=== PATIENT | female | born 1990 | race Hispanic/Latino ===

== ENCOUNTER 2017-05-01 13:04 | Emergency (ER) | payer OTHER ==
[2017-05-01 13:29] VITALS: BP 115/65; PULSE 101; RESP 16; TEMP 97; O2SAT 98
--- NOTE | 2017-05-01 13:54 | ED PDOC ---
HPI: Dental Pain/Injury Time Seen by Provider: 05/01/17 13:36 Chief Complaint (Nursing): Dental Pain Chief Complaint (Provider): facial swelling History Per: Patient History/Exam Limitations: no limitations Current Symptoms Are (Timing): Still Present Additional Complaint(s): 26 year old female presents to the ED complaining of pain and swelling to left lower mandible 3 days. Patient states she was seen by her dentist and started on Zithromax but the swelling has not improved. Patient denies fever or chills and she is tolerating liquids. PMD: none provided Past Medical History Reviewed: Historical Data, Nursing Documentation, Vital Signs Vital Signs: Last Vital Signs Temp 97.0 F L 05/01/17 13:27 Pulse 101 H 05/01/17 13:27 Resp 16 05/01/17 13:27 BP 115/65 05/01/17 13:27 Pulse Ox 98 05/01/17 13:27 - Medical History PMH: Rheumatoid Arthritis - Surgical History Surgical History: No Surg Hx - Family History Family History: States: No Known Family Hx - Living Arrangements Living Arrangements: With Family - Social History Current smoker - smoking cessation education provided: No Alcohol: None Drugs: Denies - Home Medications Home Medications: Ambulatory Orders Medication Instructions Recorded Clindamycin [Cleocin] 300 mg PO QID #28 cap 05/01/17 - Allergies Allergies/Adverse Reactions: Allergies Allergy/AdvReac Type Severity Reaction Status Date / Time clarithromycin [From Biaxin] Allergy RASH Verified 05/01/17 13:27 Sulfa (Sulfonamide Allergy RASH Verified 05/01/17 13:27 Antibiotics) Review of Systems ROS Statement: Except As Marked, All Systems Reviewed And Found Negative Constitutional: Negative for: Fever, Chills ENT: Positive for: Mouth Pain Respiratory: Negative for: Cough Gastrointestinal: Negative for: Vomiting Neurological: Negative for: Headache Physical Exam - Reviewed Nursing Documentation Reviewed: Yes Vital Signs Reviewed: Yes - Physical Exam Appears: Positive for: Well, Non-toxic, No Acute Distress Head Exam: Positive for: ATRAUMATIC, NORMAL INSPECTION, NORMOCEPHALIC Skin: Positive for: Normal Color. Negative for: Rash Eye Exam: Positive for: EOMI, Normal appearance, PERRL ENT: Positive for: Other (Swelling of left lower manible gingiva posteriorly concerning for dental abcess, mild swelling to the left mandibular region and face no facial cellulitis, full range of motion of lower mandible, airway patent , uvula midline, no trismus) Neck: Positive for: Normal, Painless ROM Neurologic/Psych: Positive for: Alert, Oriented - Laboratory Results Urine POC: Negative (test declined, patient is certain she is not ) - ECG O2 Sat by Pulse Oximetry: 98 (RA) Pulse Ox Interpretation: Normal Medical Decision Making Medical Decision Making: Impression: dental abscess Plan: Patient was instructed to discontinue use of Zithromax and was given prescription for clindamycin instead. Instructed ibuprofen every 6 hours for swelling, soft foods and liquids only. Patient was advised to follow up with dentist in 2-3 days. Disposition - Clinical Impression Clinical Impression: Dental abscess - Patient ED Disposition Is Patient to be Admitted: No Counseled Patient/Family Regarding: Diagnosis, Need For Followup, Rx Given - Disposition Referrals: [facility] [Outside] Disposition: Routine/Home Disposition Time: 13:59 Condition: STABLE Additional Instructions: Stop taking current antibiotics and take prescription as directed. Take over-the -counter ibuprofen (3 tabs) every 6 hours for pain and swelling. Liquids and soft foods only. Gargle with warm salt water after meals. Follow-up with dentist to obtain x-rays to rule out any cavities. Prescriptions: Clindamycin [Cleocin] 300 mg PO QID #28 cap Instructions: Tooth Abscess (DC) Forms: [employer] ([place])
== END 2017-05-01 14:05 | disposition home or self-care (01) ==
LOC: H.ER 13:04
DX: K04.7 Periapical abscess without sinus (principal); M06.9 Rheumatoid arthritis, unspecified

== ENCOUNTER 2018-05-26 21:34 | Emergency (ER) | payer OTHER ==
[2018-05-26 21:40] VITALS: BP 120/75; PULSE 82; RESP 18; TEMP 98.3; O2SAT 98; BMI 23.1
[2018-05-26] MEDS ORDERED: Amoxicillin-Clav 875-125 mg Tab PO ONE ×2 (21:56→22:06)
--- NOTE | 2018-05-26 22:35 | ED PDOC ---
HPI: CCC, URI, Sore Throat Time Seen by Provider: 05/26/18 21:45 Chief Complaint (Nursing): ENT Problem Chief Complaint (Provider): neck swelling History Per: Patient Onset/Duration Of Symptoms: Days (started yesterday am) Current Symptoms Are (Timing): Still Present Additional Complaint(s): Pt. reports 2 d. history of right sided face/neck swelling. Pt. reports she awoke to mild swelling to right face yesterday am which has progressed and continued to swell today prompting ED visit. Pt. denies fevers, dental pain, cough or colds. She reports she is tolerating po and breathing comfortably. Immunizations are utd. Past Medical History Vital Signs: Last Vital Signs Temp 98.3 F 05/26/18 21:39 Pulse 82 05/26/18 21:39 Resp 18 05/26/18 21:39 BP 120/75 05/26/18 21:39 Pulse Ox 98 05/26/18 21:39 - Medical History PMH: Rheumatoid Arthritis - Family History Family History: States: Unknown Family Hx - Home Medications Home Medications: Ambulatory Orders Medication Instructions Recorded Clindamycin [Cleocin] 300 mg PO QID #28 cap 05/01/17 Amoxicillin/Clavulanate [Augmentin 1 tab PO Q12 #14 tab 05/26/18 875 MG-125 MG] - Allergies Allergies/Adverse Reactions: Allergies Allergy/AdvReac Type Severity Reaction Status Date / Time clarithromycin [From Biaxin] Allergy RASH Verified 05/26/18 21:37 Sulfa (Sulfonamide Allergy RASH Verified 05/26/18 21:37 Antibiotics) Review of Systems Constitutional: Negative for: Fever, Chills ENT: Negative for: Ear Pain, Mouth Pain Physical Exam - Reviewed Nursing Documentation Reviewed: Yes Vital Signs Reviewed: Yes - Physical Exam Appears: Positive for: Well, Non-toxic Head Exam: Positive for: ATRAUMATIC Skin: Positive for: Normal Color, Warm, Dry Eye Exam: Positive for: Normal appearance ENT: Positive for: Pharynx Is (normal), TM Is/Are (normal), Other ((+) firm tender swelling in preauricular and submandibular area with no erythema, no fluctuance. Airway patent. ). Negative for: Sinus Pain/Drainage, Nasal Congestion, Pharyngeal Erythema, Tonsillar Exudate, Tonsillar Swelling - ECG O2 Sat by Pulse Oximetry: 98 Medical Decision Making Medical Decision Making: U. preg neg Motrin po given. Exam as above consistent with sialoadenitis; advised warm compresses, motrin, sour candy and f/u with PMD or ENT (referral given). Pt. tolerating po and in no distress, nontoxic appearing. Disposition - Clinical Impression Clinical Impression: Sialoadenitis - Disposition Referrals: Justo Vazquez MD [Medical Doctor] - Disposition Time: 22:46 Condition: STABLE Additional Instructions: sour candy, warm compresses. Prescriptions: Amoxicillin/Clavulanate [Augmentin 875 MG-125 MG] 1 tab PO Q12 #14 tab Instructions: Parotitis, Salivary Gland Infection Forms: [employer] [facility] ([place])
== END 2018-05-26 22:32 | disposition home or self-care (01) ==
LOC: H.ER 21:34
DX: K11.20 Sialoadenitis, unspecified (principal); Z88.2 Allergy status to sulfonamides